=== PATIENT | female | born 1990 | race Caucasian/White ===

== ENCOUNTER 2020-06-03 09:41 | Outpatient (CLI) | payer OTHER, SELFPAY ==
--- NOTE | ~2020-06-03 | US_ITS ---
EXAMINATION: US pelvic complete w TV EXAM DATE: 06/03/2020 10:23 INDICATION: Ovarian cyst. TECHNIQUE: Pelvic transabdominal and transvaginal sonogram was performed. There are multiple graysca le and Doppler images available for interpretation. There is no prior study for comparison. FINDINGS: Uterus measures 9.9 x 5.7 x 4.6 cm, is retroverted with IUD appearing to be centrally loca phong within the endometrium. Endometrial stripe measures 6 mm, within normal limits. There is no cleve e pelvic fluid. Right adnexa: The ovary measures 3.2 x 1.8 x 2.2 cm and is morphologically normal. Ovarian vascular f low confirmed. Left adnexa: The ovary measures 2.9 x 1.5 x 1.8 cm and is morphologically normal. Ovarian vascular fl ow confirmed. IMPRESSION: Unremarkable pelvic ultrasound exam. Reviewed, dictated and finalized at location A.
== END 2020-06-03 09:42 | disposition home or self-care (01) ==
PROVIDERS: Visit Provider Nurse Practitioner
DX: N83.209 Unspecified ovarian cyst, unspecified side (principal)
CPT/HCPCS: 76830; 76856

== ENCOUNTER 2020-09-09 14:30 | Outpatient (CLI) | payer OTHER, SELFPAY ==
--- NOTE | ~2020-09-09 | MR_ITS ---
EXAMINATION: MR knee LT wo con DATE: 09/09/2020 15:54 INDICATION: Internal derangement of the left knee TECHNIQUE: Magnetic resonance imaging (MRI) of the left knee was performed without intravenous contra st. Sequences included coronal PD-weighted FSE, coronal PD-weighted FS FSE, sagittal T2-weighted FSE , sagittal PD-weighted FS FSE and axial PD weighted fat saturated FSE. COMPARISON: None. FINDINGS: Medial compartment: Medial meniscus is normal. Articular cartilage is normal. Lateral compartment: Lateral meniscus is normal. Articular cartilage is normal. Patellofemoral compartment: Deep chondral fissuring at the central aspect of the lateral patellar facet involving greater than 50 % of the cartilage thickness but without degenerative subchondral changes. Trochlear cartilage is nor mal. Ligaments and tendons: Anterior and posterior cruciate ligaments are normal. The medial collateral ligament and fibular beverly ateral ligament complex are normal. The extensor mechanism is normal. The visualized medial and later al hamstring tendons as well as the iliotibial band are normal. Fluid: Physiologic amount of fluid in the joint space. No loose osteochondral bodies identified. Small Malave 's cyst. Osseous/other: There is some patchy red marrow reexpansion in the distal femur. 7 mm enchondroma at the medial femor al condyle. There are couple low signal intensity bone islands in the medial femoral condyle and at t he lateral metaphyseal region of the proximal tibia. No fracture. IMPRESSION: 1. Deep chondral fissuring at the lateral patellar facet. 2. Small Malave's cyst. Reviewed, dictated and finalized at location A.
== END 2020-09-09 14:31 | disposition home or self-care (01) ==
LOC: ANHIMG 14:37
DX: M71.22 Synovial cyst of popliteal space [Baker], left knee (principal)
CPT/HCPCS: 73721

== ENCOUNTER 2020-11-22 10:02 | Emergency (ER) | payer OTHER, SELFPAY ==
--- NOTE | ~2020-11-22 | US_ITS ---
EXAMINATION: US pelvic complete w TV DATE: 11/22/2020 13:04 INDICATION: Right adnexal pain TECHNIQUE: Multiple transabdominal and endovaginal sonographic images of the pelvis were obtained. COMPARISON: None. FINDINGS: The anteverted, retroflexed uterus measures 8.9 x 3.9 x 6.0 cm. The endometrial complex measures 2-3 mm in thickness. Linear echogenic and shadowing T-shaped IUD in expected position within the endomet rial canal. The right ovary measures 2.9 x 1.8 x 1.7 cm. 1.2 cm anechoic right ovarian cyst. The left ovary measures 2.6 x 1.7 x 1.3 cm. Vascular flow identified in both ovaries on color Doppler. There is small amount of free fluid in the pelvis. IMPRESSION: 1. IUD in expected position within the endometrial canal and small amount of likely physiologic free fluid in the pelvis. Otherwise unremarkable pelvic ultrasound. Reviewed, dictated and finalized at location A. IMPRESSION: 1. IUD in expected position within the endometrial canal and small amount of li liliam physiologic free fluid in the pelvis. Otherwise unremarkable pelvic ultras ound.
--- NOTE | ~2020-11-22 | CT_ITS ---
EXAMINATION: CT abdomen pelvis w con EXAM DATE: 11/22/2020 11:41 INDICATION: Right lower quadrant pain. TECHNIQUE: Spiral CT of the abdomen and pelvis was performed following intravenous injection of 100 m L Omnipaque 350. Axial, coronal and sagittal images of the abdomen and pelvis were reviewed. The do se-length product (DLP) for this examination was 434.26 mGy-cm. The exposure was tailored according to patient size (auto mA exposure control), and iterative reconstruction (ASIR) was used as additiona l dose reduction technique. There is no prior study for comparison. FINDINGS: The liver, spleen, adrenal glands and pancreas are unremarkable. Gallbladder is unremarkab le. No biliary obstruction. Portal and splenic veins are patent. Kidneys enhance symmetrically. T here is no hydronephrosis. Uterus is retroverted with IUD in position. The ovaries are normal in si ze. The bladder is unremarkable. There is no retroperitoneal or pelvic lymphadenopathy. Probable identification of a normal appendix. No pericecal inflammation. The stomach and small constance l are unremarkable. There is expected amount of colonic stool. No free intraperitoneal gas. The heart is normal in size. There are no pericardial or pleural effusions. The lung bases are unremark able. The bones are unremarkable. IMPRESSION: 1. No acute intra-abdominal findings. Reviewed, dictated and finalized at location A.
[2020-11-22 10:19] VITALS: BP 112/82; PULSE 82; RESP 16; TEMP 36.9; O2SAT 98
[2020-11-22 10:38] LABS: Basophils Percent Auto 0.4 % (0.2-1.2); Eosinophils Absolute Auto 0.1 K/mm3 (0-0.3); Eosinophils Percent Auto 1.2 % (0-4.4); Hematocrit 41.3 % (37.0-47.0); Hemoglobin 13.7 g/dL (12.0-15.0); Immature Granulocyte Absolute 0.02 K/mm3 (0.00-0.031); Immature Granulocyte Percent A 0.3 % (0-0.5); Lymphocytes Absolute Auto 2.46 K/mm3 (0.9-3.2); Lymphocytes Percent Auto 35.8 % (18.3-44.2); Mean Corpuscular HGB Conc 33.2 g/dl (32-36); Mean Corpuscular Hemoglobin 30.9 pg (26-34); Mean Platelet Volume 9.2 fl (7.4-10.4); Monocytes Absolute Auto 0.6 K/mm3 (0.1-0.6); Neutrophils Absolute Auto 3.7 K/mm3 (1.3-6.7); Neutrophils Percent Auto 54.3 % (45.5-73.1); Platelet Count Result 288 k/mm3 (150-375); Red Blood Count 4.44 M/mm3 (4.2-5.4); Red Cell Distribution Width 12.6 % (11.5-14.5); White Blood Count 6.9 K/mm3 (4.5-10.0)
[2020-11-22] MEDS: FAMOTIDINE 20 MG/2 ML VIAL IV PUSH (10:47)
[2020-11-22] MEDS: ONDANSETRON INJ 4 MG/2 ML VIAL IV PUSH (10:47)
[2020-11-22] MEDS: SODIUM CHLORIDE 0.9% IV 1,000 ML 999 ML IV CONT (10:48)
[2020-11-22 10:52] LABS: Alanine Aminotransferase 16 U/L (4-35); Albumin Level 4.7 g/dL (3.5-5.1); Alkaline Phosphatase 60 U/L (38-126); Anion Gap 11 mmol/L (8-16); Aspartate Amino Transferase 22 U/L (14-36); Bilirubin,Total 0.6 mg/dL (0.2-1.3); Blood Urea Nitrogen 13 mg/dL (7-17); Calcium 9.3 mg/dL (8.4-10.2); Carbon Dioxide 21 mmol/L (22-30); Chloride 106 mmol/L (98-107); Estimated CRCL calculation 91 ml/min; Estimated Glomerular Filt Rate > 60; Glucose 106 mg/dL (65-110); Lipase 123 U/L (23-300); Potassium 4.1 mmol/L (3.4-5.0); Sodium 138 mmol/L (137-145)
[2020-11-22 11:06] LABS: Add Urine Microscopic? NO; Appearance Urine Clear (Clear); Bilirubin Urine Negative (Negative); Blood Urine Negative (Negative); Color Urine Yellow (Yellow); Glucose Urine UA Negative (Negative); Ketones Urine Negative (Negative); Leukocyte Esterase Ur Negative LEU/UL (Negative); Nitrate Urine Negative (Negative); Protein Urine Negative (Negative); Specific Grav Ur 1.011 (1.001-1.035); Urobilinogen Urine Negative mg/dL (<2.0)
--- NOTE | 2020-11-22 11:29 | ED.GENADULT ---
HPI - General Adult General Chief complaint: Abdominal Pain Stated complaint: R sided Abd Pain Time Seen by Provider: 11/22/20 10:11 Source: patient and RN notes reviewed Mode of arrival: ambulatory Limitations: no limitations History of Present Illness HPI narrative: Patient is a 30-year-old female who presents to emergency department for evaluation of right lower quadrant abdominal pain that began over the course of the last several hours she notes intense pain has not taken anything history of ovarian cyst patient otherwise on arrival appears uncomfortable but not distressed. She denies any diarrhea vaginal complaints or urinary symptoms notes nausea but denies emesis Related Data Home Medications Medication Instructions Recorded Confirmed fluoxetine 20 mg 11/22/20 Allergies Allergy/AdvReac Type Severity Reaction Status Date / Time codeine AdvReac Nausea and Verified 11/22/20 10:23 Vomiting Review of Systems Review of Systems: All systems reviewed & are unremarkable except as noted in HPI and below Exam Narrative: GENERAL: Well-appearing, well-nourished, and in no acute distress. HEAD: Normocephalic, atraumatic. EYES: PERRLA and EOMI. ENT: Nares clear, no rhinorrhea or epistaxis. Mucous membranes moist. CHEST: Clear to auscultation. No respiratory distress. No wheezes rales or rhonchi HEART: Regular rate and rhythm. No murmur heard. Normal peripheral pulses. ABDOMEN: Soft, right lower quadrant tenderness to palpation with voluntary guarding, nondistended EXTREMITIES: Normal range of motion. No edema. SKIN: Warm, dry, no rash. NEURO: No focal deficits. Alert and oriented x3. PSYCH: Normal mood and affect. Course Course Emergency Course: Patient with pain in the right lower abdomen negative CT imaging and ultrasound for acute findings coupled with normal blood work she is denying any vaginal complaints. Patient will follow with gynecology and primary care for further evaluation. She is afebrile nontoxic-appearing nondistressed and agreeing to follow-up as instructed she was made aware of case findings treatment plan diagnosis Vital Signs Vital signs: Vital Signs Temperature 98.4 F 11/22/20 10:19 Pulse Rate 82 11/22/20 10:19 Respiratory Rate 16 11/22/20 10:19 Blood Pressure 112/82 11/22/20 10:19 Pulse Oximetry 98 11/22/20 10:19 Temperature 98.4 F 11/22/20 10:19 Pulse Rate 82 09/28/21 10:19 Respiratory Rate 16 11/22/20 10:19 Blood Pressure 112/82 11/22/20 10:19 Pulse Oximetry 98 11/22/20 10:19 Medical Decision Making MDM Narrative Medical decision making narrative: Patient evaluated in the emergency department for evaluation of abdominal pain unclear etiology she will be referred back to primary care and gynecology for further evaluation felt appropriate for outpatient reevaluation she is nontoxic-appearing she will be also given strict reasons to return Vital Signs Vital Signs: Vital Signs Temperature 98.4 F 11/22/20 10:19 Pulse Rate 82 11/22/20 10:19 Respiratory Rate 16 11/22/20 10:19 Blood Pressure 112/82 11/22/20 10:19 Pulse Oximetry 98 11/22/20 10:19 Temperature 98.4 F 11/22/20 10:19 Pulse Rate 82 11/22/20 10:19 Respiratory Rate 16 11/22/20 10:19 Blood Pressure 112/82 11/22/20 10:19 Pulse Oximetry 98 11/22/20 10:19 Lab Data Result diagrams: 11/22/20 10:26 11/22/20 10:26 Labs: Lab Results 11/22/20 11/22/20 11/22/20 Range/Units 10:26 10:26 10:37 WBC 6.9 (4.5-10.0) K/mm3 RBC 4.44 (4.2-5.4) M/mm3 Hgb 13.7 (12.0-15.0) g/dL Hct 41.3 (37.0-47.0) % MCV 93.0 (80-100) fl MCH 30.9 (26-34) pg MCHC 33.2 (32-36) g/dl RDW 12.6 (11.5-14.5) % Plt Count 288 (150-375) k/mm3 MPV 9.2 (7.4-10.4) fl Immature Gran % (Auto) 0.3 (0-0.5) % Neut % (Auto) 54.3 (45.5-73.1) % Lymph % (Auto) 35.8 (18.3-44.2) % [place] % (Auto) 8.0 (2.6-8
[2020-11-22] MEDS: fentaNYL CITRATE INJ (*CRX) 100 MCG/2 ML VIAL 50 MCG IV PUSH (12:00)
[2020-11-22] MEDS: KETOROLAC 30 MG/ML VIAL (*BKC) IV PUSH (13:34)
[2020-11-22] MEDS: HYDROcodone/acetaminophen (*CRX) 5-325 MG TABLET 1 TAB PO (14:21)
[2020-11-22 14:28] VITALS: BP 118/78; PULSE 69; RESP 16; O2SAT 100
== END 2020-11-22 14:29 | disposition home or self-care (01) ==
PROVIDERS: Emergency Medicine Emergency Medical Services; Emergency Provider Emergency Medicine
DX: R10.31 Right lower quadrant pain (principal); Z97.5 Presence of (intrauterine) contraceptive device
CPT/HCPCS: 36415; 74177; 76830; 76856; 80053; 81003; 81025; 83690; 85025; 96365; 96375; 99284; A9270; J0131; J1885; J2405; J3010; J7030; Q9967

== ENCOUNTER 2021-05-09 17:32 | Emergency (ER) | payer BC, MEDICAID, SELFPAY ==
--- NOTE | ~2021-05-09 | XR_ITS ---
XR hand LT min 3V DATE: 05/09/2021 18:15 INDICATION: Fall, injury to 3rd and 4th digits TECHNIQUE: 3 views COMPARISON: None FINDINGS: No fracture or dislocation, periosteal reaction or bone destruction. Small cyst or erosion at the ulnar aspect of the head of the proximal phalanx of the fourth digit. IMPRESSION: No fracture or dislocation Reviewed, dictated and finalized at location A. IMPRESSION: No fracture or dislocation
[2021-05-09 17:37] VITALS: BP 128/72; PULSE 86; RESP 18; TEMP 37.3; O2SAT 100
[2021-05-09] MEDS: IBUPROFEN 600 MG TABLET PO (18:05)
--- NOTE | 2021-05-09 18:06 | ED.UPPEXIN ---
HPI - Extremity Injury (Upper) General Chief Complaint: Extremity Injury, Upper Stated Complaint: Left Hand Finger pain Time Seen by Provider: 05/09/21 17:46 Source: patient Mode of arrival: ambulatory Limitations: no limitations History of Present Illness MD complaint: injury to: left and finger Other Extremity Injury: Left: fingers (3RD 4TH) Handedness: left Place: home Relieving factors: cold therapy Exacerbating factors: movement of extremity Context: fall Associated symptoms: denies other symptoms Related Data Home Medications Medication Instructions Recorded Confirmed fluoxetine 20 mg 11/22/20 Allergies Allergy/AdvReac Type Severity Reaction Status Date / Time codeine AdvReac Nausea and Verified 05/09/21 18:02 Vomiting Review of Systems Musculoskeletal: Musculoskeletal: Reports as per HPI Exam Const: General: cooperative, healthy appearing and acute distress (PAIN ) moderate Nutritional Appearance: average body habitus Orientation/consciousness: oriented to person, oriented to place, oriented to time and patient oriented x3 Limitations: no limitations HENMT: Head: normal to inspection, No palpable skull fracture present and normocephalic Ears: hearing grossly normal bilaterally General nose exam: Normal external nose present Face and sinus: normal facial exam and face symmetric Eyes: General: appearance normal, both eyes and all related structures Visual Gandhi: normal visual gandhi by confrontation Alignment and Position: alignment normal Periorbital: periorbital findings normal Eyelids: eyelids normal Conjunctivae: conjunctivae normal Sclera: sclerae normal Cornea: corneas normal Pupils: Equal, round and reactive pupils present EOM: EOMs intact bilaterally Neck: Neck: normal visual inspection, full ROM, no lymphadenopathy, trachea midline and supple Thyroid: thyroid normal Lymphatic: other Other: NO C SPINE POINT TENDERNESS NO STEP OFFS Chest: Chest palpation & inspection: normal inspection of the chest and normal palpation of entire chest wall Resp: Effort & Inspection: normal respiratory effort Auscultation: clear to auscultation bilaterally Cardio: Heart sounds: S1 normal heart sound present and S2 normal heart sound present Peripheral pulses: Peripheral pulses 2+ throughout Back/Spine/Pelvis: Back: no CVA tenderness Cervical Spine: normal cervical lordosis and cervical ROM normal Skin: General skin exam: normal color Trauma: no lacerations or abrasions Wounds: no wounds Neuro: General: oriented to person, oriented to place, oriented to time, patient oriented x3, tone normal, moves all extremities, no meningeal signs, no focal motor deficits and CN's II-XI intact bilaterally Motor exam (neuro): 5/5 motor strength present throughout and Other motor observations present (Pt is TTP over the left 3rd and 4th digits diffusely, no deformity) Extrem: General: normal to inspection Left upper extremity: hand Course Course Emergency Course: plan to obtain plain film imaging, elevate hand, NSAID and pain control Imaging results received, provided to patient, plan to discharge home w NSAIDs, RICE instructions, splint for comfort, FU with PCP in 10-14 days if pain is not improving. Pt is agreeable with plan. Vital Signs Vital signs: Vital Signs Temperature 37.3 C 05/09/21 17:37 Pulse Rate 86 05/09/21 17:37 Respiratory Rate 18 05/09/21 17:37 Blood Pressure 128/72 05/09/21 17:37 Pulse Oximetry 100 05/09/21 17:37 Temperature 37.3 C 05/09/21 17:37 Pulse Rate 86 05/09/21 17:37 Respiratory Rate 18 05/09/21 17:37 Blood Pressure 128/72 05/09/21 17:37 Pulse Oximetry 100 05/09/21 17:37 MDM - Extremity Injury (Upper) MDM Narrative Medical decision making narrative: imaging, pain medication, RICE Differential Diagnosis Differential diagnosis: Likely finger sprain and other (finger fracture, contusion) Medical Records Attestation: I reviewed the patie
[2021-05-09 19:08] VITALS: BP 124/68; PULSE 78; RESP 18; O2SAT 99
== END 2021-05-09 19:08 | disposition home or self-care (01) ==
PROVIDERS: Emergency Provider Nurse Practitioner Family
DX: S63.633A Sprain of interphalangeal joint of left middle finger, initial encounter (principal); W10.9XXA Fall (on) (from) unspecified stairs and steps, initial encounter
CPT/HCPCS: 29130; 73130; 99283; A9270

== ENCOUNTER 2023-07-16 09:32 | Outpatient (CLI) | payer OTHER, SELFPAY ==
--- NOTE | ~2023-07-16 | XR_ITS ---
Lumbosacral Spine: AP and lateral views Clinical History: Pain Findings: The normal lordotic curve is maintained. No acute fracture or subluxation seen. There is po sterior and interbody fusion from L4 to L5. Remaining disc spaces are preserved. The sacroiliac joint s are normally outlined. Impression: Posterior and interbody fusion from L4 to L5. Reviewed, dictated and finalized at location . Impression: Posterior and interbody fusion from L4 to L5.
== END 2023-07-16 09:33 ==
PROVIDERS: PCP Neurological Surgery; Visit Provider Neurological Surgery
DX: Z98.1 Arthrodesis status (principal)
CPT/HCPCS: 72100

== ENCOUNTER 2023-08-26 10:12 | Outpatient (CLI) | payer OTHER, SELFPAY ==
--- NOTE | ~2023-08-26 | XR_ITS ---
EXAMINATION: XR lumbar spine 2-3V DATE: 08/26/2023 10:28 INDICATION: Arthrodesis status. TECHNIQUE: 3 views of lumbar spine including standing views were obtained. COMPARISON: Lumbar spine radiographs 07/16/2023 FINDINGS: There is 5 degrees levocurvature of lumbar spine. There are changes of anterior and posteri or fusion procedures at L4-L5 with interbody devices and pedicle screws. Vertebral body heights are n ormal. There is mildly decreased disc height at L3-L4. There is multilevel mild facet joint osteoarth ritis. There is an intrauterine device in expected position. IMPRESSION: 1. Anterior and posterior fusion procedures at L4-L5. 2. Mild lumbar spondylosis. Reviewed, dictated and finalized at location A.
== END 2023-08-26 10:13 ==
PROVIDERS: PCP Neurological Surgery; Visit Provider Neurological Surgery
DX: M43.06 Spondylolysis, lumbar region (principal); Z98.1 Arthrodesis status
CPT/HCPCS: 72100

== ENCOUNTER 2023-09-25 09:53 | Outpatient (CLI) | payer OTHER, SELFPAY ==
--- NOTE | ~2023-09-25 | XR_ITS ---
3 VIEWS LUMBAR SPINE Ordering provider: Javad Fuentes, History: . Arthrodesis status . Comparison: August 26, 2023 FINDINGS: VERTEBRAL BODIES:Postoperative changes at the level of L4-L5. No visible fracture or subluxation. DISK SPACES: Normal. Disc spacer at the level of L4-L5. SOFT TISSUES: Normal. IMPRESSION: No acute osseous abnormality lumbar spine. Postoperative changes at the level of L4-L5. Reviewed, dictated and finalized at location A.
== END 2023-09-25 09:54 ==
PROVIDERS: PCP Neurological Surgery; Visit Provider Neurological Surgery
DX: Z98.1 Arthrodesis status (principal)
CPT/HCPCS: 72100

== ENCOUNTER 2023-11-13 08:56 | Outpatient (CLI) | payer OTHER, SELFPAY ==
--- NOTE | ~2023-11-13 | XR_ITS ---
EXAMINATION: XR lumbar spine 2-3V DATE: 11/13/2023 09:12 INDICATION: Arthrodesis status. TECHNIQUE: 2 views of lumbar spine standing were obtained. COMPARISON: Lumbar spine radiograph 09/25/2023 FINDINGS: There is 6 degrees levocurvature of thoracolumbar spine. There are changes of anterior and posterior fusion procedures at L4-L5 with interbody devices and pedicle screws. Vertebral body height s are normal. There is mildly decreased disc height at L3-L4. There is multilevel mild facet joint os teoarthritis. There is an intrauterine device in expected position. IMPRESSION: 1. Anterior and posterior fusion procedures at L4-L5. 2. Mild lumbar spondylosis. Reviewed, dictated and finalized at location A.
== END 2023-11-13 08:57 | disposition home or self-care (01) ==
PROVIDERS: PCP Neurological Surgery; Visit Provider Neurological Surgery
DX: Z98.1 Arthrodesis status (principal); M47.896 Other spondylosis, lumbar region
CPT/HCPCS: 72100

== ENCOUNTER 2023-12-23 14:29 | Outpatient (CLI) | payer OTHER, SELFPAY ==
--- NOTE | ~2023-12-23 | MR_ITS ---
EXAMINATION: MR lumbar spine wo/w con DATE: 12/23/2023 15:14 INDICATION: Intervertebral disc degeneration with low back pain and right leg numbness TECHNIQUE: Magnetic resonance imaging (MRI) of the lumbar spine was performed without and with 17 mL Multihance intravenous contrast. Sequences included sagittal T2-weighted FSE, sagittal T2-weighted FS FSE, and sagittal and axial T1-weighted FSE. Postcontrast sequences included axial T2-weighted FSE, sagittal T1-weighted FSE, and axial and sagittal T1-weighted FS FSE. COMPARISON: None FINDINGS: 12 degrees lumbar levocurvature. Sagittal alignment is normal.. Postoperative change of prior L4 lami nectomy with combined instrumented L4-L5 anterior and posterior spinal fusion. There is metallic magn etic field artifact associated with interbody fusion device at L4-L5 along with bilateral vertical ro d and pedicle screw fixation with intervening connecting elizabeth. Vertebral body heights are normal. Nor mal marrow signal. Mild disc desiccation, mild disc height loss and annular fissure at L3-L4. Remaini ng discs are normal. The conus medullaris terminates at L1-L2. There is normal signal in the caudal s chay cord. Paravertebral soft tissues are unremarkable. There is some postoperative scarring with st randing, mild non masslike enhancement to punctate foci of susceptibility artifact subcutaneous tissu es posterior to the lower lumbar spine. No other abnormally enhancing lesions identified. The followi ng disc levels are specifically discussed: T12-L1: The disc does not extend beyond the endplate margin. There is mild bilateral facet joint oste oarthritis. There is no neural foraminal stenosis. There is no central canal stenosis. L1-L2: The disc does not extend beyond the endplate margin. There is mild bilateral facet joint osteo arthritis. There is no neural foraminal stenosis. There is no central canal stenosis. L2-L3: Disc is minimally bulging most prominent at the foraminal zones. There is mild to moderate radha ateral facet joint osteoarthritis. There is mild bilateral neural foraminal stenosis. There is no riya tral canal stenosis. L3-L4: Disc is mildly bulging. There is hypertrophy of the ligamentum flavum. There is moderate bilat eral facet joint osteoarthritis. There is mild bilateral neural foraminal stenosis. There is mild riya tral canal stenosis. L4-L5: Anterior and posterior spinal fusion. Posterior decompression. There is mild bilateral neural foraminal stenosis. There is no central canal stenosis. L5-S1: The disc does not extend beyond the endplate margin. There is moderate right and severe left f acet joint osteoarthritis. There is mild bilateral neural foraminal stenosis. There is no central can al stenosis. IMPRESSION: 1. 12 degrees lumbar levocurvature and mild lower lumbar spondylosis with posterior decompression/L4 laminectomy and combined instrumented anterior and posterior spinal fusion at L4-L5. Reviewed, dictated and finalized at location A. IMPRESSION: 1. 12 degrees lumbar levocurvature and mild lower lumbar spondylosis with poste rior decompression/L4 laminectomy and combined instrumented anterior and air pumper ior spinal fusion at L4-L5.
== END 2023-12-23 14:30 | disposition home or self-care (01) ==
PROVIDERS: PCP Chiropractor; Visit Provider Neurological Surgery
DX: M51.369 Other intervertebral disc degeneration, lumbar region without mention of lumbar back pain or lower extremity pain (principal); Z98.1 Arthrodesis status; M47.896 Other spondylosis, lumbar region
CPT/HCPCS: 72158; A9577

== ENCOUNTER 2024-06-19 07:53 | Outpatient (CLI) | payer OTHER, SELFPAY ==
[2024-06-10 14:55] VITALS: BMI 32.7
--- NOTE | 2024-06-10 15:02 | PC.NURSE ---
Pre Radiology instructions Report to the outpatient [facility] on date __06/19/24___ at time ___08____ for procedure Time: __899__ YOU MAY BE MONITORED AT HOSPITAL FOR UP TO 4 HOURS AFTER YOUR PROCEDURE. A visitor will be allowed to accompany the patient into the hospital. You and your visitor will be asked to self-screen and do not enter if you have any COVID symptoms. A mask is OPTIONAL within the hospital. Patients are to have no food or drink 6 hours prior to procedure time Driving will be restricted after the procedure, you must have a person to drive you home. Labs will be drawn in preop area and once reviewed, you will be taken to radiology area for procedure. When the procedure is completed, you will be taken to outpatient where you will be monitored for several hours. You may have one visitor in this area. Other than holding anti-coagulants, patient may take other medication(s) as scheduled. Prior to your appointment date patients are instructed to hold anti-coagulants after discussing with ordering provider to stop. If unable to discontinue anti-coagulants please notify radiologist. ? No aspirin or warfarin (Coumadin) for 7 days prior to the procedure. ? No clopidogrel (Plavix), ticagrelor (Brilinta), prasugrel (Effient) or dabigatran (Pradaxa) for 5 days prior to the procedure. ? No rivaroxaban (Xarelto), apixaban (Eliquis), dipyridamole (Aggrenox or Persantine) or cilostazol (Pletal) for 2 days prior to the procedure. Please leave all valuables, including medications, at home the day of procedure. The hospital will not accept responsibility for valuables. Wear comfortable, loose fitting clothing.? Follow any additional instructions given to you from ordering provider. Telephone instructions given to Sandy and asked if any additional questions and then verbalized understanding. Patient advised to call scheduling provider office or registration scheduling [phone] if any additional questions.
[2024-06-19] VITALS (9 sets, daily range): BP systolic 111–125; BP diastolic 56–88; PULSE 44–70; RESP 16–18; TEMP 36.4; O2SAT 98–100; BMI 33.5
--- NOTE | ~2024-06-19 | XR_ITS ---
EXAMINATION: CT lumbar spine w con, XR myelogram spine lumbosacral DATE: 06/19/2024 10:04 INDICATION: Back pain post prior lower lumbar spinal fusion. TECHNIQUE: Informed consent was obtained from the patient. Risks and benefits including bleeding, i nfection and nerve root injury were discussed with the patient. The patient agreed to proceed. Time out procedure was performed. Director Of [employer] radiograph was obtained. An entry site was chosen at the L4-L5 level. A midline approach was used. Standard sterile prep was done with Betadine. Entry site was i nfiltrated with 5 cc 1% lidocaine. A 5 22G spinal needle was then inserted into the spinal canal ut ilizing fluoroscopic guidance. 16 mL Omnipaque 180 were then injected into the thecal sac. The needl e was removed and a sterile bandage was applied. There were no immediate complications. Frontal, lateral and oblique fluoroscopic images were then acquired. A total of 17 fluoroscopic image s and one crosstable lateral radiograph were obtained. Fluoroscopy exposure time was 0.8 minutes. Tot al DAP was 7.566 Gycm^2 The patient was then transferred to CT scan for spiral CT of the lumbar spin e which was obtained with the intrathecal but without intravenous contrast. Sagittal and coronal eloisa nstructions were performed. Automated exposure control and iterative reconstruction technique were em ployed. The dose-length product was 575.37 mGy-cm. COMPARISON: Lumbar spine MR dated 12/23/2023 FINDINGS: There is been prior L4 laminectomy and instrumented L4-5 anterior and posterior spinal fusion with bi lateral vertical elizabeth and pedicle screw fixation and a pair of interbody fusion devices. There appears be solid osseous fusion across the right-sided interbody fusion device. 8 degrees lumbar levocurvatu re. No lucency surrounding the screws to suggest loosening or infection. Sagittal alignment is normal . Vertebral body heights are normal. Mild disc height loss at L3-L4. Paravertebral soft tissues are u nremarkable. The following disc levels are specifically discussed: T11-T12 through L2-L3: The disc does not extend beyond the endplate margin. There is mild bilateral f acet joint osteoarthritis. There is no neural foraminal stenosis. There is no central canal stenosis. L3-L4: Disc is mildly bulging. There is mild bilateral facet joint osteoarthritis. There is mild bila teral neural foraminal stenosis. There is mild central canal stenosis. L4-L5: Anterior and posterior spinal fusion procedure. Posterior decompression with L4 laminectomy an d no central canal stenosis. Mild right neural foraminal stenosis resulting from small endplate osteo phyte along the right posterior lateral margin of the L4 inferior endplate. L5-S1: The disc does not extend beyond the endplate margin. There is moderate to severe bilateral fac et joint osteoarthritis. There is mild bilateral neural foraminal stenosis. There is no central canal stenosis. IMPRESSION: 1. 8 degree lumbar levocurvature with mild lower lumbar spondylosis. 2. L4 laminectomy and combined instrumented L4-L5 anterior and posterior spinal fusion. Reviewed, dictated and finalized at location A. IMPRESSION: 1. 8 degree lumbar levocurvature with mild lower lumbar spondylosis. 2. L4 laminectomy and combined instrumented L4-L5 anterior and posterior spinal fusion.
--- OUTSIDE RECORDS SUMMARY | 2024-06-19 07:57 | XMS_ITS | Clinical Summary ---
Author Organization [facility] Address [address] [place] [address] Care Team Providers Care Manager Domestic Name Role Phone Unavailable Primary Care Provider Unavailabl e Social History Tobacco Use Types Packs/Day Years Used Date Smoking Tobacco: Never Assessed Comments Unknown Sex and Gender Information Value Date Recorded Sex Assigned at Not on file Legal Sex Female 3:00 PM [employer] Gender Identity Not on file Sexual Orientation Not on file Plan of Treatment Health Maintenance Due Date Last Done Comments Hepatitis C Virus (HCV) Screening 1990 TdaP Immunization 1990 Hepatitis B Immunization (1 of 3 - 19+ 3-dose series) 2009 SARS-COV-2 Immunization ( season) 2023 Influenza Immunization (Seas on Ended) 2024 10/26/2017 Respiratory Syncytial Virus (RSV) Immunization (Adult) (1 - 1-dose 75+ series) 2065 Meningococcal Immunization (ACWY) Aged Out No longer eligible based on patient's age to complete this topic Pneumococcal Immunization Combined Aged Out No longer eligible based on patient's age to complete this topic Rotavirus Immunization Aged Out No lo nger eligible based on patient's age to complete this topic
--- OUTSIDE RECORDS SUMMARY | 2024-06-19 07:57 | XMS_ITS | Clinical Summary ---
Author Organization [facility] Address [address] [place] [address] Care Team Providers Care Proofing Machine Operator Name Role Phone Mitra Griffith MILY Primary Care Provider [phone] Allergies Active Allergy Reactions Criticality Noted Date Comments Codeine Anxiety,Dizziness,Fa tigue,GI Upset,Headache,Itching,Nausea and Vomiting,Vomiting Low 03/30/2019 Medications cyclobenzaprine (FLEXERIL) 10 MG tablet Take 1 tablet (10 mg total) by mouth nightly at bedtime. at bedtime 3 Active levonorgestrel (MIRENA) 20 MCG/DAY IUD Mirena (52 MG) 20 MCG/24HR Intrauterine Intrauterine DeviceUSE DIRECTED.[id number] 8Sensintaffar, Lowell[place] 8 Active semaglutide-evette ght management (WEGOVY) 0.25 mg/dose injection (PEN)Indication s:Weight Loss Inject 0.25 mg into the skin once a week. Indications: Weight Loss 2 mL 11 3 Active Encounters Date Type Department Care Team Description 04/09/2024 Scan [facility] Scanned, [facility] from Last 3 Months Immunizations Immunization Administration Dates Next Due Influenza (Generic) 10/26/2017 Influenza Adult (Generic) 01/23/2020 Tdap (Generic) 05/26/2014 Family History Medical History Relation Comments Alcohol Abuse Father Cancer Father Arthritis Mother Hypertension Mother Relation Status Comments Father Mother Social History Tobacco Use Types Packs/Day Years Used Date Smoking Tobacco: Former Cigarettes 0.3 3 0 02/25/2011 - 02/25/2014 Smokeless Tobacco: Never Tobacco Cessation:Counseling Given: No Alcohol Use Standard Drinks/Week Comments Yes 3 (1 standard drink = 0.6 oz pur e alcohol) PHQ-2 Answer Date Recorded Patient Health Questionnaire-2 Score 0 06/15/2022 Comments No Sex and Gender Information Value Date Recorded Sex Assigned at Not on file Legal Sex Female 7:35 PM CDT Gender Identity Not on file Sexual Orientation Not on file Last Filed Vital Signs Vital Sign Reading Time Taken Comments Blood Pressure 114/72 09/14/2022 2:14 PM CDT Pulse 100 09/14/2022 2:14 PM CDT Temperature 36.1 C (97 F) 09/14/2022 2:14 PM CDT Respiratory Rate 20 09/14/2022 2:14 PM CDT Oxygen Saturation 99% 09/14/2022 2:14 PM CDT Inhaled Oxygen Concentration - - Weight 92.1 kg (203 lb) 09/14/2022 2:14 PM CDT Height 162.6 cm (5' 4 ) 06/15/2022 1:24 PM CDT Body Mass Index 34.84 06/15/2022 1:24 PM CDT Plan of Treatment Health Maintenance Due Date Last Done Comments Cervical Cancer Screening Pa p Smear (Age 30 to 64) Every 3 Years 1990 Annual Physical 1993 Hepatitis C 02/08/2008 Hepatitis B Vaccines (1 of 3 - 19+ 3-dose series) 2009 Cervical Cancer Screening Pa p with HPV Testing (Age 30 to 64) Every 5 Years 02/08/2020 Cervical Cancer Screening wi th HPV 02/08/2020 COVID-19 Vaccine (3 - 2023-2 5 season) 2023 07/29/2020, 07/08/2020 PHQ-2 (Physician [place]) 02/26/2024 06/15/2022 DTaP, Tdap and Td Vaccines ( 2 - Td or Tdap) 05/26/2024 05/26/2014 HPV Vaccines Aged Out No longer eligi ble based on patient's age to complete this topic Meningococcal B Vaccine Aged Out No l onger eligible based on patient's age to complete this topic Meningococcal Vaccine Aged Out No isaias dary eligible based on patient's age to complete this topic Pneumococcal Vaccine: Pediatrics (0 to 5 Years) and At-Risk Patients (6 to 49 Years) Aged Out No longer eligible b ased on patient's age to complete this topic RSV Immunizations Under 20 Months Aged Out No longer eligible b ased on patient's age to complete this topic Insurance [facility] Care Teams Proofing Machine Operator Relationship Specialty Start Date End Date Mitra Griffith [place] [address] PCP - General NURSE PRACTITIONER 05/25/22
--- OUTSIDE RECORDS SUMMARY | 2024-06-19 07:57 | XMS_ITS | Encounter Summary ---
Author Organization [facility] Address [address] [place] [address] Care Team Providers Care Certified Ophthalmic Technologist Name Role Phone Keith Tejeda MD Primary Care Provider Un available Mitra Griffith NP Primary Care Provider [phone] Encounter Details Date Type Department Care Team (Latest Contact Info) Description 12/31/2017 Abstract [facility] , Abdoulaye Turner MD Social History Tobacco Use Types Packs/Day Years Used Date Smoking Tobacco: Never Assessed Comments Unknown Sex and Gender Information Value Date Recorded Sex Assigned at Not on file Legal Sex Female 7:35 PM CDT Gender Identity Not on file Sexual Orientation Not on file documented as of this encounter Plan of Treatment Not on file documented as of this encounter Visit Diagnoses Not on filedocumented in this encounter Care Teams Certified Ophthalmic Technologist Relationship Specialty Start Date End Date Keith Tejeda MD PCP - General FAMILY PRACTICE 11/29/17 05/24/22 Mitra [place] [address] PCP - General NURSE PRACTITIONER 05/25/22 documented as of this encounter
--- OUTSIDE RECORDS SUMMARY | 2024-06-19 07:57 | XMS_ITS | Clinical Summary ---
Author Organization [facility] Address [address] [place] [address] Care Team Providers Care Wine Steward Name Role Phone Unavailable Primary Care Provider Unavailabl e Source Comments [facility],non-owned Affiliates and Associated Physician Practices is amultiple site organization consisting of ambulatory clinics and hospital sitesin [place], [place], [place] and [place]. This disclosure is being madepursuant to the Care Everywhere program and may not contain all information available regarding this patient. Last updated 17.[facility] Allergies Active Allergy Reactions Criticality Noted Date Comments Codeine Vomiting 03/30/2019 Medications * Be aware that medications may not be up to date on this document. Alwaysverify current medications with the patient. benzonatate (TESSALON) 200 MG capsuleIndicati ons:Influenza B Take 1 capsule by mouth 3 times daily as needed for Cough 30 capsule 03/30/2019 Active albuterol HFA (PROVENTIL;VENT MARCIAL;PROAIR) 108 (90 Base) MCG/ACT inhalerIndicati ons:Hx of wheezing Inhale 2 puffs by mouth every 6 hours as needed 1 Inhaler 03/30/2019 Active Active Problems No known active problems Social History Tobacco Use Types Packs/Day Years Used Date Smoking Tobacco: Former Smokeless Tobacco: Never PHQ-2 Answer Date Recorded PHQ2 TOTAL SCORE 0 08/03/2020 Comments No Sex and Gender Information Value Date Recorded Sex Assigned at Not on file Legal Sex Female 9:33 AM QUALITY ASSURANCE MONITOR BODY Gender Identity Not on file Sexual Orientation Straight 06/30/2020 7: 28 PM CDT Last Filed Vital Signs Vital Sign Reading Time Taken Comments Blood Pressure 118/72 08/03/2020 12:00 PM CDT Pulse 80 08/03/2020 12:00 PM CDT Temperature 36.8 C (98.3 F) 08/03/2020 12:00 PM CDT Respiratory Rate 20 08/03/2020 12:00 PM CDT Oxygen Saturation 98% 03/30/2019 6:35 PM QUALITY ASSURANCE MONITOR BODY Inhaled Oxygen Concentration - - Weight 81.6 kg (180 lb) 03/30/2019 6:35 PM QUALITY ASSURANCE MONITOR BODY Height 162.6 cm (5' 4 ) 03/30/2019 6:35 PM QUALITY ASSURANCE MONITOR BODY Body Mass Index 30.9 03/30/2019 6:35 PM QUALITY ASSURANCE MONITOR BODY Plan of Treatment Health Maintenance Due Date Last Done Comments HIV SCREENING 2005 HEPATITIS C SCREENING 02/03/2008 DTAP/TDAP/TD VACCINES (1 - Tdap) 2009 HEPATITIS B VACCINE (1 of 3 - 19+ 3-dose series) 2009 COVID-19 VACCINE (1 - 2023-2 5 season) 2023 DEPRESSION SCREENING 02/26/2024 INFLUENZA VACCINE (Season Ended) 2024 01/23/2020, 10/26/2017 ZOSTER VACCINE (1 of 2) 02/08/2040 HIB VACCINE Aged Out No longer eligi ble based on patient's age to complete this topic HPV VACCINE Aged Out No longer eligi ble based on patient's age to complete this topic MENINGOCOCCAL (Group B) VACCINE SHARED DECISION-MAKING Aged Out No longer eligible based on patient's age to complete this topic MENINGOCOCCAL GROUPS A/C/Y/W VACCINE Aged Out No longer eligible b ased on patient's age to complete this topic PNEUMOCOCCAL VACCINE Aged Out No long er eligible based on patient's age to complete this topic Insurance [facility]
--- OUTSIDE RECORDS SUMMARY | 2024-06-19 07:57 | XMS_ITS | Data Portability ---
Author Organization [facility] Address [address] [place] [address] [place] [address] Care Team Providers Care Hebrew Cantor Name Role Phone RAMONA DOWNEY Primary Care Provider Assessment Encounter Date Assessment Date Assessment LastModified by Organization Details LastModified Time 02/12/2024 02/12/2024 Annual gynecological exam performed. Patient will come back in a year unless there are new symptoms. [email or web address] Not available 02/12/2024 09:43:21 Plan of Treatment Reminders Order Date Submit Date Provider Last Modified By Organization Details Last Modified Time Details Appointments [facility] 2024 09:30A M ANGELA RODRIGUEZ NP Not available Not available Not available Lab pap, IG + HR HPV - HPV regardles s but if HPV is positive need subtyping 16,18/45 2023 024 [facility] (Lab), [address], [place], [address], 02/23/2024 12:12:24 test, urine 2023 024 [email or web address] [facility], [address], [place], [address], 02/12/2024 11:04:26 Referral None recorded. Procedures None recorded. Surgeries None recorded. Imaging None recorded. Medication Orders norethind jason acetate 1 mg-ethiny l estradiol 20 mcg tablet 2023 025 [id number], [address], [place], [place], [id number], 05/13/2024 10:31:56 Patient TargetsNo targets recorded. Patient InstructionsNo instructions recorded. Reason for Referral None Reported. Results Created Date Observation Date Name Description Value Unit Range Abnormal Flag Note LastModifiedBy Organization Detail LastModifiedTime 02/12/20 24 02/12/2024 IMAGE GUIDE D PAP AND HPV REGAR DLESS image guided Pap, HPV regardless of Pap result SEE RESULT S BELOW CASE REPOR T: Cytol ogy Gynec ologi jonna Repor t Case: [id number] Autho flaca idalia Provi muna: Dermo dy, Angela , ANP, TRAINING AND DEVELOPMENT REP Colle cted: 02/11 1030 Order ing Locat ion: [place] [facility] Recei melinda: 02/12 0249 First Lucius n: Kylee Perez, CT Speci men: Lucius philip Pap - Image d, Cervi x STATE MENT OF ADEQU ACY: Satis facto ry for evalu ation Trans forma tion zone compo nent prese nt ----- ----- ----- ----- ----- ----- ----- ----- ----- ----- ----- ----- ----- ----- ----- ----- ----- ---- FINAL DIAGN OSIS: Negat derik for Intra epith justin moya or Viraj rosa (NIL) . Elect anita patel by Kylee Perez, CT on 02/22 at 1108 DISABILITY SERVICES COORDINATOR ----- ----- ----- ----- ----- ----- ----- ----- ----- ----- ----- ----- ----- ----- ----- ----- ----- ---- HPV RESUL TS: HPV mRNA E6/E7 : No HPV mRNA Detec phong NOTE: This high risk HPV mRNA assay detec ts fourt een high- risk HPV types (16, 18, 31, 33, 35, 39, 45, 51, 52, 56, 58, 59, 66, 68) witho ut diffe renti ation . COMME NT: This speci men was revie wed by a Cytot echno logis t and/o r Patho logis t (as indic ated in this repor t) after evalu ation using the Thinp rep Imagi ng Syste m. CLINI JONNA INFOR MATIO N: Menst rual Statu s: LMP (if appli cable ): Clini jonna Histo ry/Pr eviou s Pap: Type of Neopl dane (if appli cable ): Signi fican t Clini jonna Findi ngs: Other Histo ry: Hormo pauly (if appli cable ): PAP EDUCA WAYNE L NOTE: The Pap Test is a scree tamera test with an inher ent false negat derik rate. Liqui d-bas ed sampl ing may decre ase, but will not elimi etelvina, false negat derik resul ts. A negat derik resul t does not precl ude the prese nce and/o r devel opmen t of disea se, since the prese nce of abnor mal cells in the sampl e depen ds on the locat ion of the lesio n and sampl ing techn ique. Kaleb nued regul ar scree tamera is the best metho d of cance r preve ntion . If repor phong cytol ogic findi ng do not corre late with physi jonna and/o r histo rical findi ngs, furth er inves tigat ion is recom marcos d, as clini jac warra nted. Not Available [facility] (Lab) [address], [place], [address], 02/23/2024 12:12:24 02/12/20 24 02/12/2024 pregn mik test, urine HCG negati ve Not Available [facility] [address], [place], [address], 02/12/2024 11:04:05 Result Notes None recorded. Procedures Surgical History Date Name Laterality Status Provider Name and Address Organization Details Recorded Time 02/12/20 24 IUD Removal completed ANGELA RODRIGUEZ NP [address], [place], [address], [facility] 02/12/2024 11:01:51 06/04/19 24 Orthopedic Surgery completed [facility] 02/12/2024 09:43:56 09/26/19 21 Date of Last Pap Smear completed [facility] 02/12/2024 09:43:55 Colposcopy completed [facility] 02/12/2024 09:43:56 Tonsillectomy completed [facility] 02/12/2024 09:43:56 Imaging Results None recorded. Procedure Notes None recorded. Medical Equipment None Reported. Allergies Allergen ID Allergen Name Allergen Category Reaction Reaction Severity Criticality Documentation Date Start Date Code Code System Note Provider Name and Address Organization Details Recorded Time 03910 codeine medicatio n vomiting moderate Not available 02/12/2024 2670 [facility] 09:43:55 Medications Name Sig Start Date Stop Date Status Note LastModified by Organization Details LastModified Time fluoxetine 40 mg capsule 02/11 completed Not Available Not Available Not Available azithromyci n 250 mg tablet 02/11 completed Not Available Not Available Not Available benzonatate 200 mg capsule TAKE 1 CAPSULE BY MOUTH THREE TIMES DAILY NEEDED FOR COUGH 02/11 completed Not Available Not Available Not Available meloxicam 15 mg tablet TAKE 1 TABLET BY MOUTH DAILY 02/11 completed Not Available Not Available Not Available prednisone 20 mg tablet TAKE 2 TABLETS BY MOUTH EVERY DAY WITH FOOD FOR 5 DAYS 02/11 completed Not Available Not Available Not Available amoxicillin 500 mg tablet TAKE FOUR TS PO 1 HOUR B DAPP 02/11 completed Not Available Not Available Not Available oxycodone-a cetaminophe n 5 mg-325 mg tablet TAKE 1 TABLET BY MOUTH EVERY 4 TO 6 HOURS NEEDED 02/11 completed Not Available Not Available Not Available amoxicillin 875 mg tablet TAKE 1 TABLET BY MOUTH EVERY 12 HOURS FOR 10 DAYS 02/11 completed Not Available Not Available Not Available methocarbam ol 750 mg tablet TAKE 1 TABLET BY MOUTH THREE TIMES DAILY NEEDED 02/11 completed Not Available Not Available Not Available norethindro ne acetate 1 mg-ethinyl estradiol 20 mcg tablet Take 1 tablet every day by oral route. 05/13 completed Not Available Not Available Not Available methylpredn isolone 4 mg tablets in a dose pack FOLLOW PACKAGE DIRECTION S 05/13 completed Not Available Not Available Not Available albuterol sulfate HFA 90 mcg/actuati on aerosol inhaler INHALE 2 PUFFS BY MOUTH EVERY 4 TO 6 HOURS NEEDED FOR SHORTNESS OF BREATH OR WHEEZING 05/13 completed Not Available Not Available Not Available amoxicillin 875 mg-potassiu m clavulanate 125 mg tablet TAKE 1 TABLET BY MOUTH EVERY 12 HOURS FOR 10 DAYS 05/13 completed Not Available Not Available Not Available Vitals Date Recorded Body height Body mass index (BMI) Body weight Systolic blood pressure Diastolic blood pressure Provider Name and Address Organization Details Last Updated DateTime 02/12/2024 162.56 cm 33.3 kg/m2 48350.2 g 114 mm[Hg] 74 mm[Hg] [facility] 4 09:46:21 Date Recorded Body height Body mass index (BMI) Body weight Systolic blood pressure Diastolic blood pressure Provider Name and Address Organization Details Last Updated DateTime 05/13/2024 162.56 cm 33.3 kg/m2 02541.92 g 106 mm[Hg] 70 mm[Hg] [facility] 5 10:32:01 Social History Question Answer Notes LastModified by Organizat ion Details LastModified Time Do You Have An Advance Directive? No Information not available 02/12/2024 What Is Your Level Of Alcohol Consumption? Occasional [email or web address] Information not available 02/12/2024 How Many Years Have You Consumed Alcohol? 10 [email or web address] Information not available 02/12/2024 Are You Blind Or Do You Have Difficulty Seeing? No [email or web address] Information not available 02/12/2024 What Is Your Level Of Caffeine Consumption? Moderate [email or web address] Information not available 02/12/2024 How Much Tobacco Do You Chew? None Information not available 02/12/2024 In The 14 Days Before Symptom Onset, Have You Had Close Contact With A Laboratory-confir med COVID-19 While That Case Was Ill? No [email or web address] Information not available 02/12/2024 In The 14 Days Before Symptom Onset, Have You Had Close Contact With A Person Who Is Under Investigation For COVID-19 While That Person Was Ill? No Information not available 02/12/2024 Have You Been To An Area Known To Be High Risk For COVID-19? No [email or web address] Information not available 02/12/2024 Are You Deaf Or Do You Have Serious Difficulty Hearing? No [email or web address] Information not available 02/12/2024 What Is The Highest Grade Or Level Of School You Have Completed Or The Highest Degree You Have Received? 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 Yes [email or web address] Information not available 02/12/2024 Do You Use Protection During Sex? No [email or web address] Information not available 02/12/2024 Do You Use Your Seat Belt Or Car Seat Routinely? Yes [email or web address] Information not available 02/12/2024 Do You Have Smoke And Carbon Monoxide Detectors In Your Home? Yes [email or web address] Information not available 02/12/2024 How Much Tobacco Do You Smoke? No [email or web address] Information not available 02/12/2024 Do You Feel Stressed (tense, Restless, Nervous, Or Anxious, Or Unable To Sleep At Night)? [id number] [email or web address] Information not available 02/12/2024 Do You Use Any Illicit Or Recreational Drugs? No [email or web address] Information not available 02/12/2024 Do You Use Sunscreen Routinely? Yes [email or web address] Information not available 02/12/2024 Have You Used IV Drugs? No [email or web address] Information not available 02/12/2024 Sex: Unknown Functional Status Question Answer Note LastModified by Organizat ion Details LastModified Time Are you able to walk? YESWOREST [email or web address] Information not available 02/12/2024 What is your exercise level? Occasional [email or web address] Information not available 02/12/2024 Mental Status None recorded. Family History Relationship Description Onset Age of this Age Resolved Age Notes LastModified by Organization Details LastModified Time Paternal Aunt Malignant tumor of cervix [email or web address] Not available 2023 09:43:55 Paternal Uncle Substance abuse [email or web address] Not available 2023 09:43:55 Paternal Grandfather Malignant tumor of lung [email or web address] Not available 2023 09:43:55 Father Substance abuse [email or web address] Not available 2023 09:43:55 Medical History Condition Response Allergies (Food, seasonal, environmental ) N Other N Breast Cancer N Drug/Latex Allergies/Reactions N Blood Transfusion N Dermatologic Disorders N Lung Disease N Defects or Inherited Disease N Breast Problem N Gestational Diabetes N Hematologic disorders N Anesthesia Complications N History of STI N Deep Vein Thrombosis N Polycystic ovary syndrome N Anxiety Disorder N Autoimmune disease N Arthritis N Infertility N Polyps N Acid Reflux (GERD) N History of abnormal pap N Cancer N Stroke N Varicosities N Neurologic/Epilepsy N Endometriosis N High Cholesterol N Headaches N Fibromyalgia N Kidney Disease N Heart Problems N Kidney or Bladder Problems N Thyroid Problems N GI Problems N Eating Disorder N Anemia N Art (IVF or FET) N Psychiatric Illness N Ovarian Cancer N Diabetes N Pulmonary (TB, Asthma) N Hepatitis/Liver Disease N No Past Medical History N Eczema N Urinary Tract Infection N Abuse/Domestic Violence N Asthma N Trauma/Violence N Depression/ depression N Heart Disease N Pre-Eclampsia N Hypertension N Osteoporosis N Thrombophilias N Gynecological History Statement/Question Response Flow Heavy Date of LMP 05/08/2024 On BCP's at Conception? N N Was last menstrual period normal N STIs/STDs Y HPV Vaccine Y Duration of Flow (days) 7 Current Control Method IUD Age at First Child 21 Date of control 09/26/2015 Frequency of Cycle (Q days) 25 Sexually Active? Y None Age of first menstrual cycle 12 Date of Last Pap Smear 09/25/2020 Sexual Problems? N Desired Control Method Partner Vas ectomy LMP Definite N Obstetrics History GPAL:G 2 P 2 0 0 2 Type Value Full Term 2 Living 2 Total 2 Past Encounters Encounter ID Performer Location Encounter Start Date Encounter Closed Date Diagnosis/Indication Diagnosis SNOMED-CT Code Diagnosis ICD10 Code Diagnosis Note [id number] ANGELA RODRIGUEZ NP [facility] [address] [address] 02/12/2024 09:27:03 02/12/2024 11:05:28 Gynecologic examination 21232135 Z01.419 Annual gynecologi jonna exam performed. Patient will come back in a year unless there are new symptoms. Suggest Calcium with Vitamin D if not eating in diet. Patient advised to get annual flu shot. Recommend yearly physicals and perform monthly breast exams. Genetic testing is available for patients with family history of cancer. Engage in safe sexual practices, use condoms. Encouraged to have daily exercise. Avoid tobacco and illicit drugs, moderation of alcohol. If BMI greater than 25 dietary consult advised. If you have any questions please call or email. Pap smear- pap w/ HPV collected laboratory evaluation - PCP STI testing - declined Removal of intrauterine contraceptive device 8968172610 Z30.432 Discussed that we could remove and replace IUD. Patient declined and requests removal only.1. IUD removed on 02/12/24 without difficulty 2. An alternate plan for contracept ion was discussed. The patient would like to use OCPs for her contracept ion. Contracept ion care management [id number] Z30.9 Discussed all control options in great detail. Pt would like to start ocp. She is aware of the risks and benefits. She does not have any medical condition that is contraindi cated with the use of estrogen containing control. Pt will start her pills immediatel y. She is aware it is not effective for control the first month. She is also aware of the importance of taking at the same time every day. Encouraged use of condoms as the pill does not protect against STD's. Consent was read and signed. Pt verbalized understand ing. Patient to RTO in 3 months for med check. [id number] ANGELA RODRIGUEZ NP [facility] [address] [address] 05/13/2024 10:10:40 05/13/2024 11:19:43 Menorrhagia 117302902 N92.0 Today we discussed multiple options for menorrhagi a including: IUDs, Patch, Ring, Pills, Nexplanon, Lysteda; Endometria l ablation (requires MD consult). We discussed if any are contraindi cated with her current health Hx.Patient states that she would like to continue to monitor periods for now, and will call if periods become more bothersome , frequent and/or heavy. Health Concerns Section Related Observation LastModified by Organization Detai ls LastModified Time None Recorded Concern Status LastModified by Organization Details LastModified Time None Recorded Advance Directives Directive N: Payers Encounter Date Sequence Insurance Name Policy Number Policy Zarate Covered Member ID Zarate Member ID Guarantor Name 02/12/2024 1 [facility] [id number] Javad Ballesteros [id number] 2 Sandy Mijares 05/13/2024 1 [facility] [id number] Javad Ballesteros [id number] 2 Sandy Mijares Notes Date Note Type Note Provider Name and Address Organization Details Recorded Time 02/12/2024 text/html Annual GYNReport ed bypatient.Menstrua l cycle:Irregular cycle intervals Urinary symptoms:No hematuria; No incontinence Vulva:No genital lesion Vagina:Normal vaginal discharge Breast:No breast pain; No breast lump; No nipple discharge Current Contraception:Intr auterine device (iud) Sexual complaints:No sexual complaints; No pain during intercourse; Normal libido Menopausal Symptoms:No menopausal symptoms; Normal vaginal lubrication Psychological symptoms:No depression; No anxiety; No PMDD Preventive measures:Encourage self breast examination; Encourage regular exercise; Encourage no tobacco use; Encourage regular mammograms starting age 40 New patient here to establish care and to discuss Mirena IUD that was placed 09/2015. Patient states that she has had irregular cycles with the IUD and has not bled for 6 months. Patient states that tests have been negative. Patient would like to have IUD removed and to start on another BC method until her partner gets a vasectomy. Patient reports a history of ovarian cysts, denies current pelvic pain. Patient states that she will have breast tenderness and cramping each month around the time of her cycle, but does not bleed. ANGELA RODRIGUEZ, MILY [address], [place], [address], [facility] 02/12/2024 11:04:42 05/13/2024 text/html Patient here to discuss periods since having mirena IUD removed three months ago.Partner has vasectomy scheduled and she decided to not start the OCPs since they have been using condoms.Patient states that periods have been regular, every 25-28 days, last 6-7 days with moderate to heavy flow. Patient states that she changes a pad or tampon q1-2 hours on first day of period. Denies dizziness, SOB, chest pain. AGNELA RODRIGUEZ, MILY [address], [place], [address], [facility] 05/13/2024 11:15:03 OBGyn Episode Ob Episode Information Episode Created Date Number of Fetuses Patient Bloodtype Patient rh Status Prepregnancy Weight lbs Domestic Partner Domestic Partner Phone Father Name Tow Mate Status 02/12/20 24 1 CLOSED Fetus Data First Name Last Name Admitted to NICU Weight (g) Sex Living Outcome Pediatric Complications Fetus ID Race Codes Race Delivery Type 4110.45 0704 M Full Term [id number] Vaginal Delivery Will Calculation Initial Will Date Initial Exam Date Initial Exam Provider Initial Ultrasound Date Last Menstrual Period Date Ultra Sound Weeks Gestation 0 Eighteen To Twenty Week Will Update Ultra Sound Date Fundal Height At Umbil Quickening Date Ultra Sound Latest Weeks Gestation Final Will Confirmed By Final Will Confirmed Date Final Will Date Ultra Sound Latest Days Gestation 0 0 Menstrual History Last Menstrual Date Menses Monthly On Bcp Conception Prior Menses Frequency Hcg Plus Date Menarche Onset Age Delivery Information Delivery Date Delivery Type Labor Anesthesia Weeks Gestation Incision Type Labor Labor Length Hrs Delivered By Post Complications Tubal Sterilization Discharge Date Comments 2 39.1 Discharge Information Feeding Method Contraceptive Method Maternal HG B and HCT Levels Ob Episode Information Episode Created Date Number of Fetuses Patient Bloodtype Patient rh Status Prepregnancy Weight lbs Domestic Partner Domestic Partner Phone Father Name Tow Mate Status 02/12/20 24 1 CLOSED Fetus Data First Name Last Name Admitted to NICU Weight (g) Sex Living Outcome Pediatric Complications Fetus ID Race Codes Race Delivery Type M Full Term [id number] Vaginal Delivery Will Calculation Initial Will Date Initial Exam Date Initial Exam Provider Initial Ultrasound Date Last Menstrual Period Date Ultra Sound Weeks Gestation 0 Eighteen To Twenty Week Will Update Ultra Sound Date Fundal Height At Umbil Quickening Date Ultra Sound Latest Weeks Gestation Final Will Confirmed By Final Will Confirmed Date Final Will Date Ultra Sound Latest Days Gestation 0 0 Menstrual History Last Menstrual Date Menses Monthly On Bcp Conception Prior Menses Frequency Hcg Plus Date Menarche Onset Age Delivery Information Delivery Date Delivery Type Labor Anesthesia Weeks Gestation Incision Type Labor Labor Length Hrs Delivered By Post Complications Tubal Sterilization Discharge Date Comments 5 39 Discharge Information Feeding Method Contraceptive Method Maternal HG B and HCT Levels
[2024-06-19 08:47] LABS: INR 1.1; Prothrombin Time 14.3 Seconds (11.1-14.7)
[2024-06-19 08:55] LABS: Mean Platelet Volume 9.6 fl (7.4-10.4); Platelet Count Result 263 k/mm3 (150-375)
[2024-06-19] MEDS: ACETAMINOPHEN 325 MG TABLET 650 MG PO (10:33)
[2024-06-19] MEDS: IBUPROFEN 400 MG TABLET 800 MG PO (12:05)
--- NOTE | 2024-06-19 13:20 | SUR.PHASEII ---
Dr Fenton at bedside spoke with patient. MD states patient is clear to discharge at this time.
== END 2024-06-19 13:40 | disposition home or self-care (01) ==
PROVIDERS: PCP Chiropractor; Referring Provider Neurological Surgery; Visit Provider Radiology Diagnostic Radiology
DX: M47.896 Other spondylosis, lumbar region (principal); Z98.1 Arthrodesis status
CPT/HCPCS: 36415; 62304; 72132; 85049; 85610; A9270; Q9965